=== PATIENT | male | born 1970 | race Hispanic/Latino ===

== ENCOUNTER 2018-01-14 10:51 | Emergency (ER) | payer OTHER ==
[2018-01-14] MEDS ORDERED: BUPIVACAINE/PF 0.5% 30ML VIAL ONE (11:42)
[2018-01-14] MEDS ORDERED: ONDANSETRON HCL 4 MG/2 ML VIAL ONE (11:42)
[2018-01-14] MEDS ORDERED: LIDOCAINE HCL 2% 20ML ONE (11:42)
[2018-01-14] MEDS ORDERED: MORPHINE SULFATE 4 MG/1ML SYG ONE (11:43)
== END 2018-01-14 14:09 | disposition home or self-care (01) ==
LOC: EDH 10:51
DX: S52.592A Other fractures of lower end of left radius, initial encounter for closed fracture (principal); S52.692A Other fracture of lower end of left ulna, initial encounter for closed fracture; W11.XXXA Fall on and from ladder, initial encounter; Y93.89 Activity, other specified; Y92.89 Other specified places as the place of occurrence of the external cause; Y99.8 Other external cause status
CPT/HCPCS: 25605; 73100; 73110; 96374; 96375; 99284; J2270; J2405; J3490 ×2